=== PATIENT | female | born 1970 | race Caucasian/White ===

== ENCOUNTER 2019-03-07 11:58 | Emergency (ER) | payer OTHER ==
[~2019-03-07] VITALS: Ht 172.7 cm; Wt 61.7 kg
== END 2019-03-07 19:26 | disposition home or self-care (01) ==
LOC: ER 11:58
DX: M79.662 Pain in left lower leg (principal)

== ENCOUNTER 2023-04-17 13:15 | Outpatient (CLI) | payer OTHER | END 2023-04-17 13:23 | disposition home or self-care (01) | LOC: SONOGRAMA 13:15 | PROVIDERS: ATTEND Surgery | DX: E04.2 Nontoxic multinodular goiter (principal); K59.00 Constipation, unspecified ==

== ENCOUNTER 2024-07-10 07:26 | Outpatient (CLI) | payer OTHER | END 2024-07-10 07:49 | disposition home or self-care (01) | LOC: TOM 07:26 | PROVIDERS: ATTEND Surgery | DX: E04.2 Nontoxic multinodular goiter (principal); R10.84 Generalized abdominal pain ==